=== PATIENT | female | born 1965 | race Caucasian/White ===

== ENCOUNTER 2021-02-17 06:25 | Day surgery (SDC) | payer OTHER ==
[~2021-02-17] VITALS: Ht 177.8 cm; Wt 98.6 kg
[~2021-02-17 06:25] MED LIST: CALCIUM 250+D1 EACH PO; KEFLEX500 MG PO; LEVOTHYROXINE137 MC1 PO; LEVOTHYROXINE75 MCG PO; MINOCYCLINE HC100 MG PO; MINOCYCLINE HCL50 M1 PO; NAPROXEN500 MG PO; NORCO 5-325 TA1 EACH PO; TAMOXIFEN CITRA20 MG PO; TRIAMTERENE-HC1 EAC3 PO; TURMERIC500 M2 PO; VITAMIN D350 MC3 PO
--- NOTE | 2021-02-17 07:47 | NUR ---
02/17/21 0747 Wanda Perez 0743- PT TO PACU IN LL POSITION. EYES OPEN TALKING WITH RN, HOWEVER DROWSY. BREATHING EASY AND UNLABORED. SPO2 >95% ON 2 L O2 NC. PT DENIES PAIN NAUSEA OR DIZZINESS. PT ENCOURAGED TO PASS GAS.
--- NOTE | 2021-02-17 08:16 | NUR ---
PT ALERT, ORIENTED AND SUPPORTED BY HER . PT HAS HAD PREVIOUS SCOPE, ALL QUESTIONS ASKED ANSERED. SPOUSE WILL RETURN UPON DC. OR STAFF IN, GAVE BLESSING. WILL FOLLOW NEEDED
--- NOTE | 2021-02-18 06:33 | OR ---
[facility] [address] [place], [place] [address] Signed DATE OF OPERATION: 02/17/2021 SURGEON: Bethany Farrell MD PREOPERATIVE DIAGNOSES: 1. Paternal grandmother with colon cancer at age 56. 2. Maternal uncle with colon cancer in his early 60s. 3. Colonoscopy in 2014 with internal and external hemorrhoids. 4. Chronic constipation. POSTOPERATIVE DIAGNOSES: 1. Minimal internal and external hemorrhoids. 2. Large redundant tortuous colon. PROCEDURE: Colonoscopy without biopsy. ESTIMATED BLOOD LOSS: None. INDICATIONS: Vicenta is a 55-year-old female, asked to see me for her 2nd colonoscopy. We know she has internal and external hemorrhoids from her colonoscopy in 2014. We know her maternal grandmother had colon cancer at age 56. She that same year. Her maternal uncle developed colon cancer in his early 60s and lived 20 years beyond that. She currently has no lower GI complaints. There is some concern about constipation in the past. She has always done well with Versed and fentanyl. She had expressed understanding and wished to proceed. She understands the nature for colonoscopy. There is risk including, but not limited to gas bloating, crampy abdominal pain, bleeding, perforation requiring surgery, and missed diagnosis. PROCEDURE NOTE: Vicenta was taken into our endoscopy suite and placed in the left lateral decubitus position. She was given a total of 7 mg of Versed and 175 mcg of fentanyl to cover the case. A digital rectal exam was performed and she has very small external hemorrhoids. She had good sphincter tone. The adult colonoscope was introduced and advanced under direct visualization of camera. She does have a long redundant tortuous sigmoid colon, which took a few minutes to get through. It took extra sedation abdominal compression in order to advance the scope. She does have a long colon. It took a while to get around hepatic flexure and down into the cecum itself. Her prep was quite excellent. Electronically Signed By: BETHANY FARRELL MD 02/18/21 0633 PATIENT NAME: VICENTA CAIN OPERATIVE REPORT DATE OF : 63 REPORT #: [id number] PHYSICIAN: BETHANY FARRELL MD PCP: KERRI RODRIGUEZ REPORT IS CONFIDENTIAL AND NOT TO BE RELEASED WITHOUT AUTHORIZATION [facility] [address] [place], [place] [address] Signed The scope does drag a bit in the sigmoid colon. As she gets older and more frail, she may have to have propofol infusions. We could easily see the appendiceal orifice and the ileocecal valve. The scope was then slowly withdrawn. We took pictures throughout for photodocumentation. We found no pathology throughout the entire colon or rectum. Upon retroflexion of scope, she has very tiny internal hemorrhoids. After this, the gas was suctioned out and the colonoscope removed. Vicenta tolerated the procedure quite well. RECOMMENDATIONS: Vicenta will return every 5 years for repeat colonoscopies based on her family history. Bethany Farrell MD ALB/MODL /[id number] cc: MD Kerri Chao PA Copies: BETHANY FARRELL MD, LINDA PA ~ Electronically Signed By: BETHANY FARRELL MD 02/18/21 0633 PATIENT NAME: VICENTA CAIN OPERATIVE REPORT DATE OF : 63 REPORT #: [id number] PHYSICIAN: BETHANY FARRELL MD PCP: KERRI RODRIGUEZ REPORT IS CONFIDENTIAL AND NOT TO BE RELEASED WITHOUT AUTHORIZATION
== END 2021-02-17 08:13 | disposition home or self-care (01) ==
LOC: OPS 06:25 → DS 06:25 → OPS 06:45 → DS 06:45 → OPS 08:13
PROVIDERS: ATTEND Colon & Rectal Surgery
PROC: 0DJD8ZZ Inspection of Lower Intestinal Tract, Via Natural or Artificial Opening Endoscopic (ICD-10-PCS; principal; 2021-02-17 06:45)
DX: Z12.11 Encounter for screening for malignant neoplasm of colon (principal); Q43.8 Other specified congenital malformations of intestine; K64.8 Other hemorrhoids; K64.4 Residual hemorrhoidal skin tags; D14.30 Benign neoplasm of unspecified bronchus and lung; E03.9 Hypothyroidism, unspecified; R73.01 Impaired fasting glucose; K59.09 Other constipation; Z86.718 Personal history of other venous thrombosis and embolism; Z87.891 Personal history of nicotine dependence; Z79.890 Hormone replacement therapy; Z79.899 Other long term (current) drug therapy; Z88.2 Allergy status to sulfonamides
CPT/HCPCS: 99153; G0500; J2250; J3010; J7121

== ENCOUNTER 2023-04-08 06:05 | Observation (INO) | payer OTHER ==
[~2023-04-08] VITALS: Ht 177.8 cm; Wt 97.0 kg
--- OUTSIDE RECORDS SUMMARY | ~2023-04-08 | XMS | Continuity of Care Document ---
Demographics + + + | Address | [address] | | | [place] [address] | + + + | Preferred Language | Unknown | + + + | Marital Status | | + + + | Alevism Affiliation | Unknown | + + + | Race | White | + + + | Ethnic Group | Unknown | + + + Author + + + | Author | [facility] | + + + | Organization | [facility] | + + + | Address | [address] | | | [place] [address] | + + + | Phone | | + + + Care Team Providers + + + + | Care Photo Lab Manager Name | Role | Phone | + + + + Unavailable | Unavailable | + + + + Allergies and Intolerances + + + + + | date | description | facility | type | + + + + + | (no date) | BANDAIDS | [facility] | (unknown) | + + + + + | (no date) | Sulfa (Sulfonamide | [facility] | (unknown) | | | Antibiotics) | | | + + + + + Encounters No information. Functional Status No information. Immunizations No information. Medications No information. Problems No information. Procedures No information. Results/Labs No information. Social History No information. Vital Signs No information."
[2023-04-08] MEDS ORDERED: MINOCYCLINE HCL50 MG PO (13:39)
[2023-04-08] MEDS ORDERED: LEVOTHYROXINE137 MCG PO (13:40)
[2023-04-08 14:18] VITALS: BP 154/72
--- NOTE | 2023-04-08 14:47 | NUR ---
PATIENT ARRIVED TO THE UNIT FROM ED VIA STRETCHER. BEDSIDE REPORT RECEIVED FROM ZACHARY. PATIENT AMBULATES INDEPENDENTLY TO THE BED FROM STRETCHER, GAIT EVEN/STEADY. A/OX4, PATIENT ABLE TO ANSWER ALL QUESTIONS WITHOUT ANY ISSUES. PERRL. HRR. LS CLEAR THROUGHOUT, DENIES SOB/COUGH. ABDOMEN SOFT, NONTENDER, BT+, HAD BM UPON GETTING TO THE FLOOR. EDEMA TO BLE, PATIENT HAS HX OF VEIN STRIPPING AND SHE STATES SHE IS BASELINE FOR HER. SCATTERED BRUISES TO BLE. (L) AC SITE, SALINE LOCKED. MRI SCREENING FORM COMPLETED. NIH SCREENING NEGATIVE. PATIENT SWALLOW EVAL PASSED IN THE ED, SHE HAS BEEN ABLE TO DRINK WATER ON THE UNIT WITHOUT ANY SWALLOWING ISSUES OR CLEARING THROAT. DENIES PAIN ON ADMISSION. NO VISUAL DISTURBANCES. CALL LIGHT WITHIN REACH. ALL PATIENT CARE NEED MET AT THIS TIME. CALL LIGHT WITHIN REACH, BED RAILS UP X2.
--- NOTE | 2023-04-08 14:49 | NUR ---
Medications reconciled using pharmacy records and patient interview. Patient takes mincocycline 50mg daily as needed for Rosacea and would prefer to not have someone bring it in for her, therefore, pharmacy cancelled the order.
--- NOTE | 2023-04-08 15:30 | NUR ---
REPORT RECEIVED FROM KADE HANNA. THIS RN ASSUMING CARE OF PT. PT CONTINUES TO DENY PAIN AND NAUSEA AND ANY NEW SYMPTOMS OF STROKE OR TIA. PTS FAMILY TO BEDSIDE AND VISITING WITH PT. MENU PROVIDED AND PT ORDERING DINNER. NO ADDITIONAL REQUESTS OR COMPLAINTS. CALL LIGHT WITHIN REACH. BED RAILS UP.
--- NOTE | 2023-04-08 16:05 | NUR ---
INTO CHECK ON PATIENT. PATIENT HAS FAMILY AT BEDSIDE. CURRENTLY VISITING AND WATCHING TV. PATIENT GIVEN FRESH WATER. DENIES ANY OTHER CARES AT THIS TIME. CALL LIGHT WITHIN REACH.
--- NOTE | 2023-04-08 17:17 | NUR ---
THIS RN TO ROOM TO CHECK ON PT. PT VISITING WITH FAMILY. S/S OF STROKE AND TIA REVIEWED WITH PT AND FAMILY WHO VERBALIZE UNDERSTANDING AND STATE THEY KNOW WHEN TO CALL NURSING STAFF. PT DENIES PAIN AND NAUSEA. NO ADDITIONAL REQUESTS OR COMPLAINTS. CALL LIGHT WITHIN REACH. BED RAILS UP. FAMILY AT BEDSIDE. PT ENCORAUGED TO MOVE AROUND SHE FEELS THE NEED.
--- NOTE | 2023-04-08 17:32 | NUR ---
PT ADMITTED THIS SHIFT FOR POSSIBLE TIA. NIH SCORE OF 0 UPON ADMISSION. PT INDEPENDANT IN ROOM AND HAS NO REOCCURENT S/S OF STROKE SO FAR THIS SHIFT. PT TOELRATING REGULAR DIET WITH GOOD APPITITE. TELEMETRY MONITORIN SHOWS NORMAL SINUS RYTHEM WITH RATE IN THE 70'S. MRI AND ECHO PLANNED FOR TOMORROW. FAMILY AT BEDSIDE. PT EDUCATION DONE REGARDING S/S OF TIA/STROKE ANDWHEN TO CALL NURSING STAFF. PT VOIDING QUANITTY SUFFICIENT. PT USES CALL LIGHT AND MAKES NEEDS KNOWN.
[2023-04-08 17:48] VITALS: BP 154/72
--- NOTE | 2023-04-08 18:37 | NUR ---
THIS RN TO ROOM TO CHECK ON PT. PT REPORTS SHE WAS UP TO VOID WITH NO ISSUES, NO RETURN OF NUMBNESS OR RIGHT SIDED WEAKNESS. PT DENIES PAIN AND NAUSEA OR ANY NEW S/S OF STROKE OR TIA. ICE WATER REFILLED. NEW MENU PROVIDED TO PT, PT CALLING DOWN BREAKFAST ORDER. NO ADDITIONAL REQUESTS OR COMPLAINTS. CALL LIGHT WITHIN REACH. BED RAILS UP.
[2023-04-08 20:15] VITALS: BP 145/78
--- NOTE | 2023-04-08 20:20 | NUR ---
PT ASSESSED AND MEDICATIONS GIVEN. PT RESTING IN BED. VSS. SAFETY PRECAUTIONS MAINTAINED. CALL LIGHT WITHIN REACH. WILL CONTINUE TO MONITOR.
[2023-04-09 02:16] VITALS: BP 128/71
[2023-04-09 05:49] VITALS: BP 140/70
--- NOTE | 2023-04-09 06:29 | NUR ---
PT RESTED WELL DURING THE SHIFT. PT INDEPENDENT. PT EXPRESSED NO COMPLAINTS OR CONCERNS. SAFETY PRECAUTIONS MAINTAINED. CALL LIGHT WITHIN REACH. WILL CONTINUE TO MONITOR.
--- NOTE | 2023-04-09 07:38 | NUR ---
RECEIVED REPORT FROM [facility] NURSE. PT IS SITTING UP IN BED, A/O. CALL LIGHT WITHIN REACH.
--- NOTE | 2023-04-09 09:02 | NUR ---
PT ASSESSMENT AND MEDICATION ADMINISTRATION COMPLETED. PT HAD MRI THIS MORNING. ALERT AND ORIENTED. CALL LIGHT WITHIN REACH.
[2023-04-09 09:10] VITALS: BP 148/86
--- NOTE | 2023-04-09 12:56 | NUR ---
PT IN BED. FAMILY MEMBERS IN ROOM. PT EXPRESSED HOPE OF DISCHARGE SOON. INDICATED "FELT FINE." PRAYED FOR CONCLUSIVE DIAGNOSIS AND IDENTIFIED TREATMENT PATH.
[2023-04-09 12:59] VITALS: BP 142/78
[2023-04-09] MEDS ORDERED: CLOPIDOGREL75 MG PO (13:09)
[2023-04-09] MEDS ORDERED: ASPIRIN325 MG PO (13:10)
[2023-04-09] MEDS ORDERED: LISINOPRIL10 MG PO (13:30)
--- NOTE | 2023-04-09 14:03 | NUR ---
DISCHARGE INSTRUCTIONS GIVEN TO PATIENT, LEFT IV REMOVED WITH CATHETER INTACT, VITALS ARE WITHIN NORMAL RANGE, AND WITHIN THE LAST HOUR.
--- NOTE | 2023-04-11 19:38 | EKG ---
[facility] [address] [facility] [place], [place] [address] Signed Normal sinus rhythm prolonged QTc No previous ECGs available Confirmed by SRIRAM BOSTON MD ([id number]) on 04/11/2023 7:38:13 PM Electronically Signed By: SRIRAM BOSTON 04/11/23 193 PATIENT NAME: VICENTA CAIN Electrocardiogram DATE OF : 63 PHYSICIAN: SRIRAM BOSTON REPORT #: [id number] REPORT IS CONFIDENTIAL AND NOT TO BE RELEASED WITHOUT AUTHORIZATION
== END 2023-04-09 14:05 | disposition home or self-care (01) ==
LOC: ED 06:05 → MS 06:06
PROVIDERS: ADMIT Internal Medicine; ATTEND Internal Medicine
DX: G45.9 Transient cerebral ischemic attack, unspecified (principal); E03.9 Hypothyroidism, unspecified; D21.9 Benign neoplasm of connective and other soft tissue, unspecified; R91.8 Other nonspecific abnormal finding of lung field; Z88.2 Allergy status to sulfonamides; Z91.048 Other nonmedicinal substance allergy status
CPT/HCPCS: 36415; 70450; 70496; 70498; 70553; 80048; 80053; 83735; 84484; 85025; 85610; 85730; 93005; 93010; 93306; 99285 25; A9270; A9579; G0378; Q9967